=== PATIENT | female | born 1940 | race Caucasian/White ===

== ENCOUNTER → 2023-12-22 | Outpatient (REF) | payer MEDICARE, MEDICAID ==
[2023-12-22 11:12] LABS: BASO # 0.1 10^3/uL (0.0-0.2); BASO % 0.8 % (0.0-1.0); EOS # 0.2 10^3/uL (0.0-0.5); EOS % 2.3 % (0.0-3.0); HEMOGLOBIN 12.9 g/dl (12.0-15.5); LYMPH # 1.5 10^3/uL (1.5-5.0); LYMPH % 19.4 % (24.0-44.0); MEAN CORPUSCULAR HEMOGLOBIN 25.7 pg (27.0-33.0); MEAN CORPUSCULAR HGB CONC 30.7 g/dl (32.0-36.5); MEAN CORPUSCULAR VOLUME 83.8 fl (80.0-96.0); MONO # 0.7 10^3/uL (0.0-0.8); MONO % 8.8 % (2.0-8.0); NEUTROPHILS # 5.2 10^3/uL (1.5-8.5); NEUTROPHILS % 68.4 % (36.0-66.0); PLATELET COUNT, AUTOMATED 297 10^3/uL (150-450); RED BLOOD COUNT 5.01 10^6/uL (4.00-5.40); WHITE BLOOD COUNT 7.5 10^3/uL (4.0-10.0)
[2023-12-22 11:30] LABS: HEMOGLOBIN A1c 6.8 % (4.0-6.0)
[2023-12-22 11:38] LABS: ALBUMIN 3.4 G/DL (3.2-5.2); ALKALINE PHOSPHATASE 133 U/L (46-116); ALT/SGPT 25 U/L (7.0-40); AST/SGOT 20 U/L (<34); BILIRUBIN,TOTAL 0.7 MG/DL (0.3-1.2); BLOOD UREA NITROGEN 15 MG/DL (9-23); CALCIUM LEVEL 9.6 MG/DL (8.3-10.6); CARBON DIOXIDE LEVEL 28 MMOL/L (20-31); CHLORIDE LEVEL 102 MMOL/L (98-107); CHOLESTEROL LEVEL 124 MG/DL (<200); CREATININE FOR GFR 0.85 MG/DL (0.55-1.30); GLOMERULAR FILTRATION RATE > 60.0 (>32); GLUCOSE, FASTING 172 MG/DL (74-106); LDL CHOLESTEROL 60.4 MG/DL (<100); POTASSIUM SERUM 4.6 MMOL/L (3.5-5.1); SODIUM LEVEL 138 MMOL/L (136-145); TOTAL PROTEIN 6.5 G/DL (5.7-8.2); TRIGLYCERIDES LEVEL 118 MG/DL (<150)
[2023-12-22 11:39] LABS: THYROID STIMULATING HORMONE 3.464 uIU/ML (0.55-4.78); TOTAL 25(OH) VITAMIN D 50.5 NG/ML (20.0-100.0)
[2023-12-22 11:41] LABS: FREE T4 1.08 NG/DL (0.89-1.76)
== END ==
PROVIDERS: ATTEND Nurse Practitioner Family
DX: E11.69 Type 2 diabetes mellitus with other specified complication (principal); E66.9 Obesity, unspecified; I10 Essential (primary) hypertension; E55.9 Vitamin D deficiency, unspecified

== ENCOUNTER → 2024-04-08 | Outpatient (REF) | payer MEDICARE, MEDICAID ==
[2024-04-08 09:39] LABS: BASO # 0.1 10^3/uL (0.0-0.2); BASO % 0.5 % (0.0-1.0); EOS # 0.2 10^3/uL (0.0-0.5); EOS % 1.9 % (0.0-3.0); HEMATOCRIT 44.3 % (36.0-47.0); HEMOGLOBIN 14.5 g/dl (12.0-15.5); LYMPH # 2.5 10^3/uL (1.5-5.0); LYMPH % 24.5 % (24.0-44.0); MEAN CORPUSCULAR HEMOGLOBIN 27.7 pg (27.0-33.0); MEAN CORPUSCULAR HGB CONC 32.7 g/dl (32.0-36.5); MEAN CORPUSCULAR VOLUME 84.5 fl (80.0-96.0); MONO # 0.6 10^3/uL (0.0-0.8); MONO % 5.6 % (2.0-8.0); NEUTROPHILS # 6.8 10^3/uL (1.5-8.5); NEUTROPHILS % 67.2 % (36.0-66.0); PLATELET COUNT, AUTOMATED 209 10^3/uL (150-450); RED BLOOD COUNT 5.24 10^6/uL (4.00-5.40)
[2024-04-08 09:58] LABS: ALBUMIN 3.8 G/DL (3.2-5.2); BILIRUBIN,TOTAL 0.5 MG/DL (0.3-1.2); CALCIUM LEVEL 9.8 MG/DL (8.3-10.6); CHOLESTEROL RISK RATIO 6.08 (<5); CREATININE FOR GFR 1.09 MG/DL (0.55-1.30); HDL CHOLESTEROL 52.1 MG/DL (>40); LDL CHOLESTEROL 214.1 MG/DL (<100); NON-HDL-C 264.9 MG/DL; POTASSIUM SERUM 3.8 MMOL/L (3.5-5.1); TOTAL PROTEIN 7.4 G/DL (5.7-8.2)
[2024-04-08 09:59] LABS: THYROID STIMULATING HORMONE 1.316 uIU/ML (0.55-4.78); TOTAL 25(OH) VITAMIN D 35.5 NG/ML (20.0-100.0)
[2024-04-08 10:08] LABS: HEMOGLOBIN A1c 9.1 % (4.0-6.0)
[2024-04-08 10:56] LABS: FREE T4 1.34 NG/DL (0.89-1.76)
== END ==
PROVIDERS: ATTEND Nurse Practitioner Family
DX: E11.69 Type 2 diabetes mellitus with other specified complication (principal); E66.9 Obesity, unspecified; I10 Essential (primary) hypertension; E55.9 Vitamin D deficiency, unspecified

== ENCOUNTER 2024-07-11 07:32 | Emergency (ER) | payer MEDICARE, MEDICAID ==
[~2024-07-11] VITALS: Ht 162.6 cm; Wt 90.7 kg
[2024-07-11] MEDS: BOOSTRIX VACCINE (TETANUS/DIPHTH/ACEL. PERTUSSIS) 0.5ML SYR IM.IMMUN ONE (08:55)
[2024-07-11 09:37] VITALS: BP 140/64; TEMP 97.2; O2SAT 95
== END 2024-07-11 09:35 | disposition home or self-care (01) ==
LOC: M ED 07:32 → EDBD 07:32 → M ED 09:35
DX: S00.03XA Contusion of scalp, initial encounter (principal); S61.411A Laceration without foreign body of right hand, initial encounter; Y92.019 Unspecified place in single-family (private) house as the place of occurrence of the external cause; Y93.9 Activity, unspecified; Y99.9 Unspecified external cause status; W06.XXXA Fall from bed, initial encounter; I10 Essential (primary) hypertension; E78.5 Hyperlipidemia, unspecified; Z23 Encounter for immunization; Z88.8 Allergy status to other drugs, medicaments and biological substances

== ENCOUNTER → 2024-08-02 | Outpatient (REF) | payer MEDICARE, MEDICAID ==
[2024-08-02 18:07] LABS: APPEARANCE, URINE CLEAR (CLEAR); BACTERIA, URINE AUTO 1+ (NEGATIVE); BILIRUBIN, URINE AUTO NEGATIVE (NEGATIVE); BLOOD, URINE BLOOD NEGATIVE (NEGATIVE); COLOR, URINE YELLOW (YELLOW); GLUCOSE, URINE (UA) AUTO 3+ mg/dL (NEGATIVE); KETONE, URINE AUTO NEGATIVE (NEGATIVE); LEUKOCYTE ESTERASE, URINE AUTO NEGATIVE (NEGATIVE); NITRITE, URINE AUTO NEGATIVE (NEGATIVE); PROTEIN, URINE AUTO NEGATIVE (NEGATIVE); RBC, URINE AUTO 0 /HPF (0-3); SPECIFIC GRAVITY URINE AUTO 1.016 (1.002-1.035); SQUAMOUS EPITHELIAL CELL UR AU 0 /HPF (0-6); UROBILINOGEN, URINE AUTO 0.2 mg/dL (0.0-2.0); WBC, URINE AUTO 2 /HPF (0-3)
== END ==
PROVIDERS: ATTEND Nurse Practitioner Family
DX: R41.0 Disorientation, unspecified (principal)

== ENCOUNTER 2024-08-23 19:22 | Inpatient (IN) | payer MEDICARE, MEDICAID ==
[~2024-08-23] VITALS: Ht 162.6 cm; Wt 94.6 kg
[2024-08-23 20:14] VITALS: BP 149/66; TEMP 97.2; O2SAT 94
[2024-08-23] MEDS ORDERED: ISOVUE-370 76% 100ML VIAL As Ordered ONE (20:19)
[2024-08-23 20:33] LABS: BASO % 0.3 % (0.0-1.0); EOS # 0.2 10^3/uL (0.0-0.5); EOS % 1.9 % (0.0-3.0); HEMOGLOBIN 12.9 g/dl (12.0-15.5); LYMPH # 1.6 10^3/uL (1.5-5.0); MEAN CORPUSCULAR HEMOGLOBIN 27.9 pg (27.0-33.0); MEAN CORPUSCULAR HGB CONC 32.3 g/dl (32.0-36.5); MEAN CORPUSCULAR VOLUME 86.6 fl (80.0-96.0); MONO # 0.6 10^3/uL (0.0-0.8); MONO % 6.4 % (2.0-8.0); NEUTROPHILS # 6.4 10^3/uL (1.5-8.5); NEUTROPHILS % 72.9 % (36.0-66.0); PLATELET COUNT, AUTOMATED 203 10^3/uL (150-450); RED BLOOD COUNT 4.62 10^6/uL (4.00-5.40); WHITE BLOOD COUNT 8.8 10^3/uL (4.0-10.0)
[2024-08-23 20:54] LABS: CK-MB VALUE MASS < 1.0 NG/ML (<3.6)
[2024-08-23 20:57] LABS: BLOOD UREA NITROGEN 22 MG/DL (9-23); CARBON DIOXIDE LEVEL 29 MMOL/L (20-31); CHLORIDE LEVEL 106 MMOL/L (98-107); CPK CREATINE PHOSPHOKINASE 37 U/L (34-145); CREATININE FOR GFR 1.35 MG/DL (0.55-1.30); GLOMERULAR FILTRATION RATE 39.8 (>32); GLUCOSE, FASTING 139 MG/DL (74-106); POTASSIUM SERUM 4.1 MMOL/L (3.5-5.1); SODIUM LEVEL 145 MMOL/L (136-145)
[2024-08-23 21:14] LABS: INR 0.97; PARTIAL THROMBOPLASTIN TIME 30.4 SECONDS (24.8-34.2); PROTHROMBIN TIME 13.2 SECONDS (12.5-14.5)
[2024-08-23 21:53] LABS: CK-MB VALUE MASS < 1.0 NG/ML (<3.6)
[2024-08-23 21:54] LABS: CPK CREATINE PHOSPHOKINASE 40 U/L (34-145)
[2024-08-23] MEDS ORDERED: ONDA-282 PO (22:36)
[2024-08-23] MEDS: cefTRIAXone SOD 1 GM in DEXTROSE 5% (D5W) ADV/MINI-BAG 50 ML IV ONE (22:40)
[2024-08-23] MEDS: AZITHROMYCIN 250MG TABLET PO ONE (22:40)
[2024-08-23 23:58] LABS: MAGNESIUM LEVEL 2.2 MG/DL (1.8-2.4)
[2024-08-24] VITALS (7 sets, daily range): BP systolic 157–162; BP diastolic 72–79; TEMP 97.4–98; O2SAT 92–96
[2024-08-24 00:10] LABS: PROCALCITONIN 0.12 ng/ml
[2024-08-24] MEDS ORDERED: MOM 30ML SUSPENSION UDC PO PRN (00:30)
[2024-08-24] MEDS ORDERED: MAALOX 30 ML SUSP *UDC PO PRN (00:30)
[2024-08-24 01:19] LABS: ALBUMIN 3.4 G/DL (3.2-5.2); ALKALINE PHOSPHATASE 106 U/L (35-104); ALT/SGPT 20 U/L (7.0-40); AST/SGOT 12 U/L (<34); BILIRUBIN,DIRECT < 0.1 MG/DL (<0.4); BILIRUBIN,TOTAL 0.3 MG/DL (0.3-1.2); CHOLESTEROL LEVEL 185 MG/DL (<200); CHOLESTEROL RISK RATIO 3.73 (<5); HDL CHOLESTEROL 49.5 MG/DL (>40); LDL CHOLESTEROL 77.5 MG/DL (<100); NON-HDL-C 135.5 MG/DL; TOTAL PROTEIN 6.8 G/DL (5.7-8.2); TRIGLYCERIDES LEVEL 290 MG/DL (<150)
[2024-08-24 01:38] LABS: HEMOGLOBIN A1c 6.5 % (4.0-6.0)
[2024-08-24] MEDS ORDERED: JARD1TAB3 PO (01:46)
[2024-08-24] MEDS ORDERED: ACET-907 PO (01:46)
[2024-08-24] MEDS ORDERED: ARIP20TA51 PO (01:46)
[2024-08-24] MEDS ORDERED: PANT40TA29 PO (01:46)
[2024-08-24] MEDS ORDERED: GLIP5TAB20 PO (01:46)
[2024-08-24] MEDS ORDERED: FURO40TA2 PO (01:46)
[2024-08-24] MEDS ORDERED: VITA200012 PO (01:46)
[2024-08-24] MEDS ORDERED: ASPI-1 PO (01:46)
[2024-08-24] MEDS ORDERED: ZOLO100T PO (01:46)
[2024-08-24] MEDS ORDERED: LOSA50TA28 PO (01:46)
[2024-08-24] MEDS ORDERED: REPA140I2 SC (01:46)
[2024-08-24] MEDS ORDERED: AMLO2.5T3 PO (01:46)
[2024-08-24] MEDS ORDERED: HOME MED LIST COMPLETE! XX SCH (01:50)
[2024-08-24] MEDS: ACETAMINOPHEN 325 MG TAB PO PRN (04:22)
[2024-08-24] MEDS: ASPIRIN 81MG CHEW TABLET PO SCH (08:42)
[2024-08-24] MEDS: CETIRIZINE (ZyrTEC) 10 MG TAB PO SCH (08:42)
[2024-08-24] MEDS: HEPARIN SOD (PORCINE) 5000UNITS/ML 1ML VIAL/SYRINGE SQ SCH (08:42)
[2024-08-24] MEDS: CLOPIDOGREL 75 MG TAB PO SCH (08:42)
[2024-08-24] MEDS: AUGMENTIN 875 MG TAB PO SCH (08:42)
[2024-08-24] MEDS: DOCUSATE SODIUM 100MG CAPSULE PO SCH (08:42)
[2024-08-24] MEDS: FLUTICASONE PROP 0.05% NASAL SPRAY 16 GM (FLONASE) NARES SCH (08:43)
[2024-08-24 10:40] LABS: BASO % 0.3 % (0.0-1.0); EOS # 0.2 10^3/uL (0.0-0.5); EOS % 2.1 % (0.0-3.0); HEMATOCRIT 42.4 % (36.0-47.0); HEMOGLOBIN 13.6 g/dl (12.0-15.5); LYMPH # 1.5 10^3/uL (1.5-5.0); LYMPH % 19.5 % (24.0-44.0); MEAN CORPUSCULAR HEMOGLOBIN 28.3 pg (27.0-33.0); MEAN CORPUSCULAR HGB CONC 32.1 g/dl (32.0-36.5); MEAN CORPUSCULAR VOLUME 88.1 fl (80.0-96.0); MONO # 0.4 10^3/uL (0.0-0.8); MONO % 5.3 % (2.0-8.0); NEUTROPHILS # 5.4 10^3/uL (1.5-8.5); NEUTROPHILS % 72.7 % (36.0-66.0); PLATELET COUNT, AUTOMATED 167 10^3/uL (150-450); RED BLOOD COUNT 4.81 10^6/uL (4.00-5.40); WHITE BLOOD COUNT 7.5 10^3/uL (4.0-10.0)
[2024-08-24 11:07] LABS: CALCIUM LEVEL 8.5 MG/DL (8.3-10.6); CREATININE FOR GFR 1.06 MG/DL (0.55-1.30); GLOMERULAR FILTRATION RATE 52.6 (>32); POTASSIUM SERUM 3.6 MMOL/L (3.5-5.1)
[2024-08-24] MEDS ORDERED: **hydrALAZINE HCL** 25 MG TAB PO PRN (11:10)
[2024-08-24] MEDS: SERTRALINE 100 MG TAB PO SCH (11:48)
[2024-08-24] MEDS: PANTOPRAZOLE 40MG TAB (PROTONIX) PO SCH (11:48)
[2024-08-24] MEDS: ARIPiprazole 10 MG TAB PO SCH (20:23)
[2024-08-25] VITALS (24 sets, daily range): BP systolic 110–155; BP diastolic 56–70; TEMP 97.8–97.9; O2SAT 86–94
[2024-08-25 06:23] LABS: HEMATOCRIT 37.1 % (36.0-47.0); MEAN CORPUSCULAR HEMOGLOBIN 28.4 pg (27.0-33.0); MEAN CORPUSCULAR HGB CONC 32.3 g/dl (32.0-36.5); MEAN CORPUSCULAR VOLUME 87.7 fl (80.0-96.0); PLATELET COUNT, AUTOMATED 161 10^3/uL (150-450); RED BLOOD COUNT 4.23 10^6/uL (4.00-5.40)
[2024-08-25 07:25] LABS: BILIRUBIN,TOTAL 0.4 MG/DL (0.3-1.2); CALCIUM LEVEL 8.8 MG/DL (8.3-10.6); CREATININE FOR GFR 1.06 MG/DL (0.55-1.30); GLOMERULAR FILTRATION RATE 52.6 (>32); MAGNESIUM LEVEL 2.2 MG/DL (1.8-2.4); POTASSIUM SERUM 4.2 MMOL/L (3.5-5.1)
[2024-08-25] MEDS: ASPIRIN 81MG CHEW TABLET PO SCH (10:01)
[2024-08-25] MEDS ORDERED: GLUCOSE 4 GM CHEW PO PRN (17:55)
[2024-08-25] MEDS ORDERED: GLUCAGON INJ 1MG VIAL SC PRN (17:55)
[2024-08-25] MEDS ORDERED: DEXTROSE 50% 50ML SYRINGE IV PRN (17:55)
[2024-08-25] MEDS: INSULIN LISPRO (NovoLOG) PER UNIT SC SCH ×2 (18:22→21:00)
[2024-08-26] VITALS (7 sets, daily range): BP systolic 141–156; BP diastolic 66–76; TEMP 97.6–98.6; O2SAT 93–97
[2024-08-26 07:17] LABS: CALCIUM LEVEL 8.2 MG/DL (8.3-10.6); CREATININE FOR GFR 1.01 MG/DL (0.55-1.30); GLOMERULAR FILTRATION RATE 55.6 (>32); POTASSIUM SERUM 4.1 MMOL/L (3.5-5.1)
[2024-08-27 04:00] VITALS: BP 159/71; TEMP 97.9; O2SAT 97
[2024-08-27] MEDS: LOSARTAN 50MG TABLET PO SCH (09:06)
[2024-08-27 12:15] VITALS: BP 149/76; TEMP 97.1; O2SAT 96
[2024-08-27] MEDS: LACTOBACILLUS ACIDOPHILUS CAP (BACID) PO SCH (17:54)
[2024-08-27 21:16] VITALS: BP 153/79; TEMP 97.9; O2SAT 97
[2024-08-28 04:36] VITALS: BP 155/65; TEMP 97.5; O2SAT 98
[2024-08-28 05:47] LABS: BASO % 0.3 % (0.0-1.0); EOS # 0.3 10^3/uL (0.0-0.5); EOS % 4.5 % (0.0-3.0); HEMATOCRIT 35.1 % (36.0-47.0); HEMOGLOBIN 11.5 g/dl (12.0-15.5); LYMPH # 1.5 10^3/uL (1.5-5.0); LYMPH % 20.7 % (24.0-44.0); MEAN CORPUSCULAR HEMOGLOBIN 28.4 pg (27.0-33.0); MEAN CORPUSCULAR HGB CONC 32.8 g/dl (32.0-36.5); MEAN CORPUSCULAR VOLUME 86.7 fl (80.0-96.0); MONO # 0.4 10^3/uL (0.0-0.8); MONO % 5.3 % (2.0-8.0); NEUTROPHILS % 68.8 % (36.0-66.0); PLATELET COUNT, AUTOMATED 154 10^3/uL (150-450); RED BLOOD COUNT 4.05 10^6/uL (4.00-5.40); WHITE BLOOD COUNT 7.3 10^3/uL (4.0-10.0)
[2024-08-28 06:03] LABS: CALCIUM LEVEL 8.5 MG/DL (8.3-10.6); CREATININE FOR GFR 1.03 MG/DL (0.55-1.30); GLOMERULAR FILTRATION RATE 54.3 (>32)
[2024-08-28] MEDS: FUROSEMIDE 40 MG TAB PO SCH (09:05)
[2024-08-28 09:06] VITALS: BP 161/79
[2024-08-28] MEDS ORDERED: COLA100C5 PO (10:57)
[2024-08-28] MEDS ORDERED: RISATAB3 PO (10:57)
[2024-08-28] MEDS ORDERED: CLOP75TA2 PO (10:57)
[2024-08-28] MEDS ORDERED: CETI10TA PO (10:57)
[2024-08-28] MEDS ORDERED: AMLO1TAB24 PO (10:57)
[2024-08-28] MEDS ORDERED: AMOX875T2 PO (10:57)
[2024-08-28] MEDS ORDERED: ASPI81CH8 PO (10:57)
[2024-08-28 10:59] VITALS: BP 143/73
== END 2024-08-28 13:30 | DRG 65 ==
LOC: M ED 19:22 → UNDOADMOB 19:23 → M ED INP 19:23 → OBSVTOIN 23:34 → M ED INP 23:34 → M PCU 08-24 15:05 → M MSPAV 08-26 14:58
PROVIDERS: ADMIT Family Medicine; ATTEND Internal Medicine
PROC: B246ZZZ Ultrasonography of Right and Left Heart (ICD-10-PCS; principal; 2024-08-25)
DX: I63.531 Cerebral infarction due to unspecified occlusion or stenosis of right posterior cerebral artery (principal); I50.32 Chronic diastolic (congestive) heart failure; N17.9 Acute kidney failure, unspecified; I13.0 Hypertensive heart and chronic kidney disease with heart failure and stage 1 through stage 4 chronic kidney disease, or unspecified chronic kidney disease; E87.0 Hyperosmolality and hypernatremia; I25.10 Atherosclerotic heart disease of native coronary artery without angina pectoris; F25.9 Schizoaffective disorder, unspecified; E11.22 Type 2 diabetes mellitus with diabetic chronic kidney disease; N18.9 Chronic kidney disease, unspecified; M17.0 Bilateral primary osteoarthritis of knee; G47.33 Obstructive sleep apnea (adult) (pediatric); E66.9 Obesity, unspecified; I65.1 Occlusion and stenosis of basilar artery; I65.02 Occlusion and stenosis of left vertebral artery; J32.9 Chronic sinusitis, unspecified; R32 Unspecified urinary incontinence; Z66 Do not resuscitate; Z88.8 Allergy status to other drugs, medicaments and biological substances; M85.80 Other specified disorders of bone density and structure, unspecified site; Z79.82 Long term (current) use of aspirin; Z79.84 Long term (current) use of oral hypoglycemic drugs; Z79.899 Other long term (current) drug therapy; Z68.35 Body mass index [BMI] 35.0-35.9, adult

== ENCOUNTER → 2024-09-02 | Outpatient (REF) ==
[~2024-09-02] MED LIST: ACET-907 PO; AMLO1TAB24 PO; AMLO2.5T3 PO; AMOX875T2 PO; ARIP20TA51 PO; ASPI-1 PO; ASPI81CH8 PO; CETI10TA PO; CLOP75TA2 PO; COLA100C5 PO; FURO40TA2 PO; GLIP5TAB20 PO; JARD1TAB3 PO; LOSA50TA28 PO; ONDA-282 PO; PANT40TA29 PO; REPA140I2 SC; RISATAB3 PO; VITA200012 PO; ZOLO100T PO
[2024-09-02 09:16] LABS: HEMATOCRIT 38.7 % (36.0-47.0); HEMOGLOBIN 12.5 g/dl (12.0-15.5); MEAN CORPUSCULAR HGB CONC 32.3 g/dl (32.0-36.5); MEAN CORPUSCULAR VOLUME 86.8 fl (80.0-96.0); PLATELET COUNT, AUTOMATED 167 10^3/uL (150-450); RED BLOOD COUNT 4.46 10^6/uL (4.00-5.40); WHITE BLOOD COUNT 7.6 10^3/uL (4.0-10.0)
[2024-09-02 09:25] LABS: HEMOGLOBIN A1c 6.5 % (4.0-6.0)
[2024-09-02 09:28] LABS: CREATININE FOR GFR 1.08 MG/DL (0.55-1.30); GLOMERULAR FILTRATION RATE 51.5 (>32); POTASSIUM SERUM 3.9 MMOL/L (3.5-5.1)
== END ==
PROVIDERS: ATTEND Physician Assistant
DX: I50.9 Heart failure, unspecified (principal)

== ENCOUNTER → 2024-09-09 | Outpatient (REF) | payer MEDICARE, MEDICAID ==
[~2024-09-09] MED LIST changes: +GLIP-318 PO; -GLIP5TAB20 PO
[2024-09-09 09:01] LABS: HEMATOCRIT 36.9 % (36.0-47.0); HEMOGLOBIN 12.1 g/dl (12.0-15.5); MEAN CORPUSCULAR HEMOGLOBIN 28.7 pg (27.0-33.0); MEAN CORPUSCULAR HGB CONC 32.8 g/dl (32.0-36.5); MEAN CORPUSCULAR VOLUME 87.6 fl (80.0-96.0); PLATELET COUNT, AUTOMATED 172 10^3/uL (150-450); RED BLOOD COUNT 4.21 10^6/uL (4.00-5.40); WHITE BLOOD COUNT 8.9 10^3/uL (4.0-10.0)
[2024-09-09 09:27] LABS: CALCIUM LEVEL 8.9 MG/DL (8.3-10.6); CREATININE FOR GFR 1.1 MG/DL (0.55-1.30); GLOMERULAR FILTRATION RATE 50.4 (>32); POTASSIUM SERUM 3.8 MMOL/L (3.5-5.1)
== END ==
PROVIDERS: ATTEND Physician Assistant
DX: I50.9 Heart failure, unspecified (principal)

== ENCOUNTER → 2024-09-10 | Outpatient (REF) | PROVIDERS: ATTEND Physician Assistant | DX: E87.0 Hyperosmolality and hypernatremia (principal); Z53.8 Procedure and treatment not carried out for other reasons ==

== ENCOUNTER → 2024-09-11 | Outpatient (REF) ==
[2024-09-11 09:20] LABS: CALCIUM LEVEL 8.8 MG/DL (8.3-10.6); CREATININE FOR GFR 1.02 MG/DL (0.55-1.30); POTASSIUM SERUM 3.9 MMOL/L (3.5-5.1)
== END ==
PROVIDERS: ATTEND Physician Assistant
DX: E87.0 Hyperosmolality and hypernatremia (principal)

== ENCOUNTER → 2024-09-13 | Outpatient (REF) ==
[2024-09-13 07:53] LABS: CALCIUM LEVEL 8.7 MG/DL (8.3-10.6); GLOMERULAR FILTRATION RATE 56.2 (>32)
== END ==
PROVIDERS: ATTEND Physician Assistant
DX: E87.0 Hyperosmolality and hypernatremia (principal)

== ENCOUNTER → 2024-10-15 | Outpatient (REF) | payer MEDICARE, MEDICAID | PROVIDERS: ATTEND Physician Assistant | DX: R05.9 Cough, unspecified (principal) ==

== ENCOUNTER → 2024-10-15 | Outpatient (REF) | payer MEDICARE, MEDICAID | PROVIDERS: ATTEND Physician Assistant | DX: R05.9 Cough, unspecified (principal) ==

== ENCOUNTER → 2024-10-16 | Outpatient (REF) ==
[2024-10-16 08:38] LABS: HEMATOCRIT 38.9 % (36.0-47.0); HEMOGLOBIN 12.8 g/dl (12.0-15.5); MEAN CORPUSCULAR HEMOGLOBIN 28.6 pg (27.0-33.0); MEAN CORPUSCULAR HGB CONC 32.9 g/dl (32.0-36.5); PLATELET COUNT, AUTOMATED 163 10^3/uL (150-450); RED BLOOD COUNT 4.47 10^6/uL (4.00-5.40); WHITE BLOOD COUNT 8.6 10^3/uL (4.0-10.0)
[2024-10-16 09:05] LABS: CALCIUM LEVEL 8.9 MG/DL (8.3-10.6); CREATININE FOR GFR 1.04 MG/DL (0.55-1.30); POTASSIUM SERUM 3.9 MMOL/L (3.5-5.1)
== END ==
PROVIDERS: ATTEND Physician Assistant
DX: E11.9 Type 2 diabetes mellitus without complications (principal)

== ENCOUNTER → 2024-11-04 | Outpatient (REF) | payer MEDICARE, MEDICAID ==
[2024-11-04 18:14] LABS: C REACTIVE PROTEIN QUANTITATIV 1.68 MG/DL (<1.0)
[2024-11-04 18:16] LABS: ALBUMIN 3.6 G/DL (3.2-5.2); BILIRUBIN,TOTAL 0.3 MG/DL (0.3-1.2); CALCIUM LEVEL 9.1 MG/DL (8.3-10.6); CREATININE FOR GFR 1.12 MG/DL (0.55-1.30); GLOMERULAR FILTRATION RATE 48.5 (>32); POTASSIUM SERUM 4.4 MMOL/L (3.5-5.1); RHEUMATOID FACTOR QUANT 9.5 IU/ML (<14); TOTAL PROTEIN 6.8 G/DL (5.7-8.2)
[2024-11-04 18:17] LABS: URIC ACID 6.5 MG/DL (3.1-7.8)
== END ==
PROVIDERS: ATTEND Physician Assistant
DX: R22.30 Localized swelling, mass and lump, unspecified upper limb (principal); Z79.899 Other long term (current) drug therapy

== ENCOUNTER → 2024-11-13 | Outpatient (REF) | payer MEDICARE, MEDICAID ==
[2024-11-13 08:42] LABS: HEMATOCRIT 37.8 % (36.0-47.0); HEMOGLOBIN 12.3 g/dl (12.0-15.5); MEAN CORPUSCULAR HEMOGLOBIN 28.1 pg (27.0-33.0); MEAN CORPUSCULAR HGB CONC 32.5 g/dl (32.0-36.5); MEAN CORPUSCULAR VOLUME 86.3 fl (80.0-96.0); PLATELET COUNT, AUTOMATED 167 10^3/uL (150-450); RED BLOOD COUNT 4.38 10^6/uL (4.00-5.40); WHITE BLOOD COUNT 6.8 10^3/uL (4.0-10.0)
[2024-11-13 09:17] LABS: CREATININE FOR GFR 0.95 MG/DL (0.55-1.30); GLOMERULAR FILTRATION RATE 59.1 (>32); POTASSIUM SERUM 3.7 MMOL/L (3.5-5.1)
== END ==
PROVIDERS: ATTEND Internal Medicine
DX: E11.9 Type 2 diabetes mellitus without complications (principal)

== ENCOUNTER → 2025-01-07 | Outpatient (REF) | payer MEDICARE, MEDICAID ==
[2025-01-07 14:02] LABS: PLATELET COUNT, AUTOMATED 174 10^3/uL (150-450)
[2025-01-07 14:11] LABS: CALCIUM LEVEL 8.9 MG/DL (8.3-10.6); CARBON DIOXIDE LEVEL 27.0 MMOL/L (20-31); CHLORIDE LEVEL 106.0 MMOL/L (98-107); CREATININE FOR GFR 1.15 MG/DL (0.55-1.30); GLOMERULAR FILTRATION RATE 47.0 (>32); POTASSIUM SERUM 4.3 MMOL/L (3.5-5.1); SODIUM LEVEL 146.0 MMOL/L (136-145)
== END ==
PROVIDERS: ATTEND Physician Assistant
DX: N76.0 Acute vaginitis (principal)

== ENCOUNTER → 2025-01-17 | Outpatient (REF) | payer MEDICARE, MEDICAID | PROVIDERS: ATTEND Physician Assistant | DX: R41.0 Disorientation, unspecified (principal) ==

== ENCOUNTER 2025-01-27 12:40 | Inpatient (IN) | payer MEDICARE, MEDICAID ==
[~2025-01-27] VITALS: Ht 162.6 cm; Wt 94.8 kg
[2025-01-27 13:52] LABS: BASO # 0.0 10^3/uL (0.0-0.2); BASO % 0.1 % (0.0-1.0); EOS # 0.0 10^3/uL (0.0-0.5); EOS % 0.0 % (0.0-3.0); LYMPH # 1.0 10^3/uL (1.5-5.0); LYMPH % 7.3 % (24.0-44.0); MONO # 1.0 10^3/uL (0.0-0.8); MONO % 7.1 % (2.0-8.0); NEUTROPHILS # 12.0 10^3/uL (1.5-8.5); NEUTROPHILS % 84.9 % (36.0-66.0); PLATELET COUNT, AUTOMATED 151 10^3/uL (150-450)
[2025-01-27 14:28] LABS: ALT/SGPT 57.0 U/L (7.0-40); AST/SGOT 57.0 U/L (<34); CALCIUM LEVEL 9.5 MG/DL (8.3-10.6); CARBON DIOXIDE LEVEL 22.0 MMOL/L (20-31); CHLORIDE LEVEL 114.0 MMOL/L (98-107); CREATININE FOR GFR 2.59 MG/DL (0.55-1.30); GLOMERULAR FILTRATION RATE 17.7 (>32); POTASSIUM SERUM 3.7 MMOL/L (3.5-5.1); SODIUM LEVEL 152.0 MMOL/L (136-145)
[2025-01-27 14:30] LABS: THYROXINE (T4) 7.6 UG/DL (4.5-10.9)
[2025-01-27 15:28] LABS: KETONE, URINE AUTO RFX NEGATIVE (NEGATIVE); MUCUS, URINE RFX SMALL (NEGATIVE); NITRITE, URINE AUTO RFX NEGATIVE (NEGATIVE); RBC, URINE AUTO RFX 2 /HPF (0-3); SQUAM EPITHELIAL CELL UR AURFX 2 /HPF (0-6)
[2025-01-27 15:29] LABS: LEUKOCYTE ESTERASE UR AUTO RFX 3+ (NEGATIVE); WBC, URINE AUTO RFX TNTC /HPF (0-3)
[2025-01-27] MEDS ORDERED: ARIP1TAB6 PO (15:31)
[2025-01-27] MEDS ORDERED: AMLO1TAB24 PO (15:31)
[2025-01-27] MEDS ORDERED: ASPI81TA26 PO (15:31)
[2025-01-27] MEDS ORDERED: CLOP75TA99 PO (15:31)
[2025-01-27] MEDS ORDERED: FURO20TA2 PO (15:31)
[2025-01-27] MEDS ORDERED: HOME MED LIST COMPLETE! XX SCH (15:35)
[2025-01-27] MEDS: cefTRIAXone SOD 2 GM in DEXTROSE 5% (D5W) ADV/MINI-BAG 50 ML IV ONE (15:38)
[2025-01-27] MEDS: NS (Normal Saline) 0.9% 1,000 ML IV SCH (15:39)
[2025-01-27] MEDS ORDERED: ALBUTEROL SULFATE 2.5 MG/0.5 ML INH CONCENTRATE NEB SOLN NEB PRN (19:10)
[2025-01-27] MEDS: ACETAMINOPHEN *IV* 1,000 MG in IV 1 EA IV ONE (19:20)
[2025-01-27] MEDS: NS 0.45% 1,000 ML IV SCH (19:30)
[2025-01-27] MEDS: HEPARIN SOD 5000 UNITS/ML 1 ML VIAL/SYRINGE SQ SCH (20:03)
[2025-01-28] MEDS: MEROPENEM 1 GM in IV 1 EA IV SCH (06:01)
[2025-01-28 06:56] VITALS: BP 118/63; TEMP 98; O2SAT 94
[2025-01-28] MEDS ORDERED: GLUCOSE 4 GM CHEW PO PRN (07:50)
[2025-01-28] MEDS ORDERED: GLUCAGON INJ 1 MG VIAL SC PRN (07:50)
[2025-01-28] MEDS ORDERED: DEXTROSE 50% 50 ML SYRINGE IV PRN (07:50)
[2025-01-28 07:53] LABS: BASO # 0.0 10^3/uL (0.0-0.2); BASO % 0.2 % (0.0-1.0); EOS # 0.0 10^3/uL (0.0-0.5); EOS % 0.0 % (0.0-3.0); LYMPH # 0.8 10^3/uL (1.5-5.0); LYMPH % 5.0 % (24.0-44.0); MONO # 0.8 10^3/uL (0.0-0.8); MONO % 5.5 % (2.0-8.0); NEUTROPHILS # 13.2 10^3/uL (1.5-8.5); NEUTROPHILS % 88.4 % (36.0-66.0); PLATELET COUNT, AUTOMATED 142 10^3/uL (150-450)
[2025-01-28] MEDS: ASPIRIN 81 MG ENTERIC TABLET PO SCH (08:15)
[2025-01-28] MEDS: SERTRALINE 100 MG TAB PO SCH (08:15)
[2025-01-28] MEDS: PANTOPRAZOLE 40MG TAB PO SCH (08:15)
[2025-01-28] MEDS: CLOPIDOGREL 75 MG TAB PO SCH (08:15)
[2025-01-28] MEDS: INSULIN LISPRO (NovoLOG) PER UNIT SC SCH ×2 (08:16→19:17)
[2025-01-28 08:18] LABS: CALCIUM LEVEL 8.6 MG/DL (8.3-10.6); CARBON DIOXIDE LEVEL 22.0 MMOL/L (20-31); CHLORIDE LEVEL 119.0 MMOL/L (98-107); CREATININE FOR GFR 2.88 MG/DL (0.55-1.30); GLOMERULAR FILTRATION RATE 15.6 (>32); POTASSIUM SERUM 3.7 MMOL/L (3.5-5.1); SODIUM LEVEL 158.0 MMOL/L (136-145)
[2025-01-28] MEDS: amLODIPine 5 MG TAB PO SCH (08:23)
[2025-01-28] MEDS: D5W 1,000 ML IV SCH (09:45)
[2025-01-28 10:00] LABS: CALCIUM LEVEL 8.3 MG/DL (8.3-10.6); CARBON DIOXIDE LEVEL 21.0 MMOL/L (20-31); CHLORIDE LEVEL 120.0 MMOL/L (98-107); CREATININE FOR GFR 2.81 MG/DL (0.55-1.30); GLOMERULAR FILTRATION RATE 16.1 (>32); POTASSIUM SERUM 3.6 MMOL/L (3.5-5.1); SODIUM LEVEL 158.0 MMOL/L (136-145)
[2025-01-28 10:46] VITALS: BP 133/63; TEMP 96.8; O2SAT 92
[2025-01-28 12:36] LABS: CALCIUM LEVEL 8.4 MG/DL (8.3-10.6); CARBON DIOXIDE LEVEL 21.0 MMOL/L (20-31); CHLORIDE LEVEL 119.0 MMOL/L (98-107); CREATININE FOR GFR 2.84 MG/DL (0.55-1.30); GLOMERULAR FILTRATION RATE 15.9 (>32); POTASSIUM SERUM 3.5 MMOL/L (3.5-5.1); SODIUM LEVEL 156.0 MMOL/L (136-145)
[2025-01-28] MEDS: KCL 20MEQ IN D5W 1000ML 1,000 ML IV SCH (12:36)
[2025-01-28 13:07] VITALS: BP 121/59; TEMP 97; O2SAT 91
[2025-01-28] MEDS ORDERED: cefTRIAXone SOD 2 GM in DEXTROSE 5% (D5W) ADV/MINI-BAG 50 ML IV SCH (15:00)
[2025-01-28 15:05] VITALS: BP 124/59; TEMP 97.2; O2SAT 91
[2025-01-28 17:07] LABS: CALCIUM LEVEL 8.0 MG/DL (8.3-10.6); CARBON DIOXIDE LEVEL 20.0 MMOL/L (20-31); CHLORIDE LEVEL 118.0 MMOL/L (98-107); CREATININE FOR GFR 2.84 MG/DL (0.55-1.30); GLOMERULAR FILTRATION RATE 15.9 (>32); POTASSIUM SERUM 3.7 MMOL/L (3.5-5.1); SODIUM LEVEL 154.0 MMOL/L (136-145)
[2025-01-28] MEDS ORDERED: ALBUTEROL SULFATE 2.5 MG/0.5 ML INH CONCENTRATE NEB SOLN NEB PRN (18:00)
[2025-01-28 18:30] LABS: VENOUS BASE EXCESS -6.5 (-2.0-2.0); VENOUS HCO3 18.3 MMOL/L (23.0-27.0); VENOUS O2 SATURATION 96.3 % (60.0-80.0); VENOUS PARTIAL PRESSURE CO2 34.2 mmHg (38.0-50.0); VENOUS PARTIAL PRESSURE O2 85.7 mmHg (30.0-50.0); VENOUS PH 7.347 UNITS (7.330-7.430); VENOUS STANDARD HCO3 19.2 MMOL/L; VENOUS TOTAL CO2 19.4 MMOL/L (24.0-28.0)
[2025-01-28 18:57] LABS: CALCIUM LEVEL 8.2 MG/DL (8.3-10.6); CARBON DIOXIDE LEVEL 20.0 MMOL/L (20-31); CHLORIDE LEVEL 117.0 MMOL/L (98-107); CREATININE FOR GFR 2.78 MG/DL (0.55-1.30); GLOMERULAR FILTRATION RATE 16.3 (>32); POTASSIUM SERUM 3.8 MMOL/L (3.5-5.1); SODIUM LEVEL 153.0 MMOL/L (136-145)
[2025-01-28 19:01] LABS: CK-MB VALUE MASS 3.4 NG/ML (<3.6)
[2025-01-28 19:02] LABS: CPK CREATINE PHOSPHOKINASE 725.0 U/L (34-145); MB/CK RELATIVE INDEX 0.46 (< OR =4)
[2025-01-28 19:34] VITALS: BP 127/61; TEMP 98.8; O2SAT 94
[2025-01-28] MEDS ORDERED: INSULIN LISPRO (NovoLOG) PER UNIT SC SCH (21:00)
[2025-01-28 23:43] VITALS: BP 121/60; TEMP 97.9; O2SAT 94
[2025-01-29 01:48] LABS: CALCIUM LEVEL 7.9 MG/DL (8.3-10.6); CARBON DIOXIDE LEVEL 21.0 MMOL/L (20-31); CHLORIDE LEVEL 118.0 MMOL/L (98-107); CREATININE FOR GFR 2.89 MG/DL (0.55-1.30); GLOMERULAR FILTRATION RATE 15.6 (>32); POTASSIUM SERUM 3.8 MMOL/L (3.5-5.1); SODIUM LEVEL 153.0 MMOL/L (136-145)
[2025-01-29 03:51] VITALS: BP 126/59; TEMP 97.9; O2SAT 93
[2025-01-29 05:58] LABS: BASO # 0.0 10^3/uL (0.0-0.2); BASO % 0.2 % (0.0-1.0); EOS # 0.1 10^3/uL (0.0-0.5); EOS % 0.5 % (0.0-3.0); LYMPH # 0.9 10^3/uL (1.5-5.0); LYMPH % 7.2 % (24.0-44.0); MONO # 0.7 10^3/uL (0.0-0.8); MONO % 5.6 % (2.0-8.0); NEUTROPHILS # 10.7 10^3/uL (1.5-8.5); NEUTROPHILS % 85.5 % (36.0-66.0); PLATELET COUNT, AUTOMATED 146 10^3/uL (150-450)
[2025-01-29 06:23] LABS: CALCIUM LEVEL 7.9 MG/DL (8.3-10.6); CARBON DIOXIDE LEVEL 20.0 MMOL/L (20-31); CHLORIDE LEVEL 116.0 MMOL/L (98-107); CREATININE FOR GFR 2.84 MG/DL (0.55-1.30); GLOMERULAR FILTRATION RATE 15.9 (>32); POTASSIUM SERUM 3.9 MMOL/L (3.5-5.1); SODIUM LEVEL 151.0 MMOL/L (136-145)
[2025-01-29 07:15] VITALS: BP 134/63; TEMP 98.5; O2SAT 93
[2025-01-29 09:23] LABS: CALCIUM LEVEL 7.7 MG/DL (8.3-10.6); CARBON DIOXIDE LEVEL 20.0 MMOL/L (20-31); CHLORIDE LEVEL 118.0 MMOL/L (98-107); CREATININE FOR GFR 2.83 MG/DL (0.55-1.30); GLOMERULAR FILTRATION RATE 15.9 (>32); POTASSIUM SERUM 4.1 MMOL/L (3.5-5.1); SODIUM LEVEL 152.0 MMOL/L (136-145)
[2025-01-29 11:02] VITALS: BP 136/59; TEMP 97.1; O2SAT 95
[2025-01-29] MEDS: INSULIN LISPRO (NovoLOG) PER UNIT SC SCH ×2 (11:55→21:00)
[2025-01-29 13:39] LABS: CALCIUM LEVEL 7.8 MG/DL (8.3-10.6); CARBON DIOXIDE LEVEL 20.0 MMOL/L (20-31); CHLORIDE LEVEL 117.0 MMOL/L (98-107); CREATININE FOR GFR 2.75 MG/DL (0.55-1.30); GLOMERULAR FILTRATION RATE 16.5 (>32); POTASSIUM SERUM 4.2 MMOL/L (3.5-5.1); SODIUM LEVEL 151.0 MMOL/L (136-145)
[2025-01-29 15:28] LABS: ALT/SGPT 80.0 U/L (7.0-40); AST/SGOT 84.0 U/L (<34)
[2025-01-29 16:45] VITALS: BP 127/61; TEMP 96.8; O2SAT 92
[2025-01-29] MEDS ORDERED: PROHANCE 279.3MG/ML 5ML VIAL As Ordered ONE (19:42)
[2025-01-29] MEDS ORDERED: PROHANCE 279.3MG/ML 15ML VIAL As Ordered ONE (19:43)
[2025-01-29 20:13] LABS: CALCIUM LEVEL 7.8 MG/DL (8.3-10.6); CARBON DIOXIDE LEVEL 19.8 MMOL/L (20-31); CHLORIDE LEVEL 116.0 MMOL/L (98-107); CREATININE FOR GFR 2.69 MG/DL (0.55-1.30); GLOMERULAR FILTRATION RATE 16.9 (>32); POTASSIUM SERUM 4.3 MMOL/L (3.5-5.1); SODIUM LEVEL 149.0 MMOL/L (136-145)
[2025-01-29 21:24] LABS: CALCIUM LEVEL 7.8 MG/DL (8.3-10.6); CARBON DIOXIDE LEVEL 20.0 MMOL/L (20-31); CHLORIDE LEVEL 118.0 MMOL/L (98-107); CREATININE FOR GFR 2.73 MG/DL (0.55-1.30); GLOMERULAR FILTRATION RATE 16.7 (>32); POTASSIUM SERUM 4.3 MMOL/L (3.5-5.1); SODIUM LEVEL 150.0 MMOL/L (136-145)
[2025-01-30] VITALS (11 sets, daily range): BP systolic 118–144; BP diastolic 56–68; TEMP 95.5–98.5; O2SAT 88–98
[2025-01-30 01:18] LABS: CALCIUM LEVEL 7.6 MG/DL (8.3-10.6); CARBON DIOXIDE LEVEL 20.0 MMOL/L (20-31); CHLORIDE LEVEL 118.0 MMOL/L (98-107); CREATININE FOR GFR 2.74 MG/DL (0.55-1.30); GLOMERULAR FILTRATION RATE 16.6 (>32); POTASSIUM SERUM 4.7 MMOL/L (3.5-5.1); SODIUM LEVEL 150.0 MMOL/L (136-145)
[2025-01-30 04:58] LABS: BASO # 0.0 10^3/uL (0.0-0.2); BASO % 0.2 % (0.0-1.0); EOS # 0.3 10^3/uL (0.0-0.5); EOS % 2.4 % (0.0-3.0); LYMPH # 1.0 10^3/uL (1.5-5.0); LYMPH % 9.8 % (24.0-44.0); MONO # 0.5 10^3/uL (0.0-0.8); MONO % 4.5 % (2.0-8.0); NEUTROPHILS # 8.6 10^3/uL (1.5-8.5); NEUTROPHILS % 82.2 % (36.0-66.0); PLATELET COUNT, AUTOMATED 157 10^3/uL (150-450)
[2025-01-30 05:23] LABS: CALCIUM LEVEL 7.6 MG/DL (8.3-10.6); CARBON DIOXIDE LEVEL 19.0 MMOL/L (20-31); CHLORIDE LEVEL 116.0 MMOL/L (98-107); CPK CREATINE PHOSPHOKINASE 194.0 U/L (34-145); CREATININE FOR GFR 2.63 MG/DL (0.55-1.30); GLOMERULAR FILTRATION RATE 17.4 (>32); POTASSIUM SERUM 4.6 MMOL/L (3.5-5.1); SODIUM LEVEL 148.0 MMOL/L (136-145)
[2025-01-30 09:17] LABS: CHOLESTEROL LEVEL 161.0 MG/DL (<200); CHOLESTEROL RISK RATIO 18.29 (<5); LDL CHOLESTEROL 86.6 MG/DL (<100); NON-HDL-C 152.2 MG/DL; TRIGLYCERIDES LEVEL 328.0 MG/DL (<150)
[2025-01-30 09:35] LABS: ESTIMATED AVERAGE GLUCOSE 157.0 MG/DL (60-110)
[2025-01-30] MEDS: LanTUS (INSULIN GLARGINE INJ) 1 UNITS/0.01 ML SC SCH (09:44)
[2025-01-30 10:43] LABS: CALCIUM LEVEL 8.1 MG/DL (8.3-10.6); CARBON DIOXIDE LEVEL 20.0 MMOL/L (20-31); CHLORIDE LEVEL 115.0 MMOL/L (98-107); CREATININE FOR GFR 2.53 MG/DL (0.55-1.30); GLOMERULAR FILTRATION RATE 18.2 (>32); POTASSIUM SERUM 5.0 MMOL/L (3.5-5.1); SODIUM LEVEL 150.0 MMOL/L (136-145)
[2025-01-30 13:56] LABS: CALCIUM LEVEL 7.9 MG/DL (8.3-10.6); CARBON DIOXIDE LEVEL 19.0 MMOL/L (20-31); CHLORIDE LEVEL 114.0 MMOL/L (98-107); CREATININE FOR GFR 2.42 MG/DL (0.55-1.30); GLOMERULAR FILTRATION RATE 19.2 (>32); POTASSIUM SERUM 4.8 MMOL/L (3.5-5.1); SODIUM LEVEL 146.0 MMOL/L (136-145)
[2025-01-30] MEDS: ATORVASTATIN 20 MG TAB PO SCH (14:05)
[2025-01-30 18:13] LABS: CALCIUM LEVEL 7.8 MG/DL (8.3-10.6); CARBON DIOXIDE LEVEL 19.0 MMOL/L (20-31); CHLORIDE LEVEL 113.0 MMOL/L (98-107); CREATININE FOR GFR 2.27 MG/DL (0.55-1.30); GLOMERULAR FILTRATION RATE 20.8 (>32); POTASSIUM SERUM 4.9 MMOL/L (3.5-5.1); SODIUM LEVEL 144.0 MMOL/L (136-145)
[2025-01-30 21:16] LABS: CALCIUM LEVEL 7.7 MG/DL (8.3-10.6); CARBON DIOXIDE LEVEL 21.0 MMOL/L (20-31); CHLORIDE LEVEL 115.0 MMOL/L (98-107); CREATININE FOR GFR 2.22 MG/DL (0.55-1.30); GLOMERULAR FILTRATION RATE 21.3 (>32); POTASSIUM SERUM 4.7 MMOL/L (3.5-5.1); SODIUM LEVEL 147.0 MMOL/L (136-145)
[2025-01-31 04:04] VITALS: BP 125/58; TEMP 97.4; O2SAT 93
[2025-01-31 07:55] VITALS: BP 133/61; TEMP 97.4; O2SAT 92
[2025-01-31 08:50] LABS: BASO # 0.0 10^3/uL (0.0-0.2); BASO % 0.2 % (0.0-1.0); EOS # 0.3 10^3/uL (0.0-0.5); EOS % 3.4 % (0.0-3.0); LYMPH # 0.9 10^3/uL (1.5-5.0); LYMPH % 10.9 % (24.0-44.0); MONO # 0.4 10^3/uL (0.0-0.8); MONO % 5.0 % (2.0-8.0); NEUTROPHILS # 6.3 10^3/uL (1.5-8.5); NEUTROPHILS % 78.5 % (36.0-66.0); PLATELET COUNT, AUTOMATED 174 10^3/uL (150-450)
[2025-01-31 08:55] LABS: ALT/SGPT 86.0 U/L (7.0-40); AST/SGOT 56.0 U/L (<34); CALCIUM LEVEL 8.4 MG/DL (8.3-10.6); CARBON DIOXIDE LEVEL 21.0 MMOL/L (20-31); CHLORIDE LEVEL 116.0 MMOL/L (98-107); CREATININE FOR GFR 2.02 MG/DL (0.55-1.30); GLOMERULAR FILTRATION RATE 23.9 (>32); POTASSIUM SERUM 5.0 MMOL/L (3.5-5.1); SODIUM LEVEL 149.0 MMOL/L (136-145)
[2025-01-31] MEDS: D5W 1,000 ML IV SCH (09:32)
[2025-01-31 12:00] VITALS: BP 141/66; TEMP 97.6; O2SAT 98
[2025-01-31 15:13] LABS: CALCIUM LEVEL 8.7 MG/DL (8.3-10.6); CARBON DIOXIDE LEVEL 22.0 MMOL/L (20-31); CHLORIDE LEVEL 113.0 MMOL/L (98-107); CREATININE FOR GFR 1.92 MG/DL (0.55-1.30); GLOMERULAR FILTRATION RATE 25.4 (>32); POTASSIUM SERUM 4.9 MMOL/L (3.5-5.1); SODIUM LEVEL 147.0 MMOL/L (136-145)
[2025-01-31 15:57] VITALS: BP 140/64; TEMP 97.6; O2SAT 97
[2025-01-31 19:29] LABS: CALCIUM LEVEL 8.4 MG/DL (8.3-10.6); CARBON DIOXIDE LEVEL 22.0 MMOL/L (20-31); CHLORIDE LEVEL 112.0 MMOL/L (98-107); CREATININE FOR GFR 1.9 MG/DL (0.55-1.30); GLOMERULAR FILTRATION RATE 25.7 (>32); POTASSIUM SERUM 4.7 MMOL/L (3.5-5.1); SODIUM LEVEL 146.0 MMOL/L (136-145)
[2025-01-31 20:02] VITALS: BP 138/63; TEMP 97.1; O2SAT 94
[2025-01-31 23:25] VITALS: BP 142/67; TEMP 97; O2SAT 93
[2025-02-01 02:30] LABS: CALCIUM LEVEL 8.2 MG/DL (8.3-10.6); CARBON DIOXIDE LEVEL 21.0 MMOL/L (20-31); CHLORIDE LEVEL 110.0 MMOL/L (98-107); CREATININE FOR GFR 1.72 MG/DL (0.55-1.30); GLOMERULAR FILTRATION RATE 29.0 (>32); POTASSIUM SERUM 4.5 MMOL/L (3.5-5.1); SODIUM LEVEL 142.0 MMOL/L (136-145)
[2025-02-01 04:46] VITALS: BP 149/67; TEMP 97; O2SAT 94
[2025-02-01 05:51] LABS: BASO # 0.0 10^3/uL (0.0-0.2); BASO % 0.2 % (0.0-1.0); EOS # 0.3 10^3/uL (0.0-0.5); EOS % 3.5 % (0.0-3.0); LYMPH # 1.0 10^3/uL (1.5-5.0); LYMPH % 11.6 % (24.0-44.0); MONO # 0.4 10^3/uL (0.0-0.8); MONO % 4.6 % (2.0-8.0); NEUTROPHILS # 6.4 10^3/uL (1.5-8.5); NEUTROPHILS % 78.2 % (36.0-66.0); PLATELET COUNT, AUTOMATED 179 10^3/uL (150-450)
[2025-02-01 06:21] LABS: CALCIUM LEVEL 8.6 MG/DL (8.3-10.6); CARBON DIOXIDE LEVEL 23.0 MMOL/L (20-31); CHLORIDE LEVEL 107.0 MMOL/L (98-107); CREATININE FOR GFR 1.66 MG/DL (0.55-1.30); GLOMERULAR FILTRATION RATE 30.2 (>32); POTASSIUM SERUM 4.6 MMOL/L (3.5-5.1); SODIUM LEVEL 142.0 MMOL/L (136-145)
[2025-02-01 07:35] VITALS: BP 145/68; TEMP 97.2; O2SAT 94
[2025-02-01 14:20] VITALS: BP 148/69; TEMP 97.5; O2SAT 95
[2025-02-01 16:17] VITALS: BP 142/67; TEMP 97.8; O2SAT 95
[2025-02-01] MEDS: MOM 30 ML SUSPENSION UDC PO PRN (18:13)
[2025-02-01 20:35] VITALS: BP 135/64; TEMP 97.2; O2SAT 90
[2025-02-01] MEDS: SENNA 8.6 MG TAB PO SCH (20:42)
[2025-02-01] MEDS: DOCUSATE SODIUM 100 MG CAPSULE PO SCH (21:00)
[2025-02-02] VITALS (7 sets, daily range): BP systolic 126–146; BP diastolic 58–71; TEMP 97–98.6; O2SAT 18–96
[2025-02-02 05:59] LABS: BASO # 0.1 10^3/uL (0.0-0.2); BASO % 0.6 % (0.0-1.0); EOS # 0.2 10^3/uL (0.0-0.5); EOS % 2.4 % (0.0-3.0); LYMPH # 1.0 10^3/uL (1.5-5.0); LYMPH % 11.5 % (24.0-44.0); MONO # 0.4 10^3/uL (0.0-0.8); MONO % 4.8 % (2.0-8.0); NEUTROPHILS # 6.5 10^3/uL (1.5-8.5); NEUTROPHILS % 78.5 % (36.0-66.0); PLATELET COUNT, AUTOMATED 179 10^3/uL (150-450)
[2025-02-02 06:22] LABS: ALT/SGPT 49.0 U/L (7.0-40); AST/SGOT 22.0 U/L (<34); CALCIUM LEVEL 9.0 MG/DL (8.3-10.6); CARBON DIOXIDE LEVEL 22.0 MMOL/L (20-31); CHLORIDE LEVEL 108.0 MMOL/L (98-107); CREATININE FOR GFR 1.61 MG/DL (0.55-1.30); GLOMERULAR FILTRATION RATE 31.4 (>32); POTASSIUM SERUM 4.8 MMOL/L (3.5-5.1); SODIUM LEVEL 144.0 MMOL/L (136-145)
[2025-02-02] MEDS: MOM 30 ML SUSPENSION UDC PO SCH (21:44)
[2025-02-02] MEDS: BISACODYL 10 MG SUPP PR SCH (22:40)
[2025-02-03 04:07] VITALS: BP 150/67; TEMP 97; O2SAT 94
[2025-02-03 06:00] VITALS: O2SAT 95
[2025-02-03 06:10] LABS: BASO # 0.0 10^3/uL (0.0-0.2); BASO % 0.3 % (0.0-1.0); EOS # 0.2 10^3/uL (0.0-0.5); EOS % 2.1 % (0.0-3.0); LYMPH # 1.1 10^3/uL (1.5-5.0); LYMPH % 11.4 % (24.0-44.0); MONO # 0.5 10^3/uL (0.0-0.8); MONO % 4.7 % (2.0-8.0); NEUTROPHILS # 7.9 10^3/uL (1.5-8.5); NEUTROPHILS % 79.4 % (36.0-66.0); PLATELET COUNT, AUTOMATED 193 10^3/uL (150-450)
[2025-02-03 07:18] VITALS: BP 140/65; TEMP 97.1; O2SAT 93
[2025-02-03 08:03] LABS: ALT/SGPT 38.0 U/L (7.0-40); AST/SGOT 19.0 U/L (<34); CALCIUM LEVEL 9.0 MG/DL (8.3-10.6); CARBON DIOXIDE LEVEL 23.0 MMOL/L (20-31); CHLORIDE LEVEL 110.0 MMOL/L (98-107); CREATININE FOR GFR 1.56 MG/DL (0.55-1.30); GLOMERULAR FILTRATION RATE 32.6 (>32); POTASSIUM SERUM 4.5 MMOL/L (3.5-5.1); SODIUM LEVEL 145.0 MMOL/L (136-145)
[2025-02-03 17:07] VITALS: BP 142/64; TEMP 97.3; O2SAT 94
[2025-02-03] MEDS: LACTULOSE 20 GM/30 ML SYRUP UDC PO SCH (18:00)
[2025-02-03] MEDS: MEROPENEM 1 GM in IV 1 EA IV ONE (18:47)
[2025-02-03 19:25] VITALS: BP 138/67; TEMP 97.4; O2SAT 90
[2025-02-03] MEDS: DOCUSATE SODIUM 100 MG CAPSULE PO SCH (21:00)
[2025-02-04 03:05] VITALS: BP 138/60; TEMP 97.5; O2SAT 95
[2025-02-04 06:05] LABS: PLATELET COUNT, AUTOMATED 217 10^3/uL (150-450)
[2025-02-04 06:29] LABS: ALT/SGPT 31.0 U/L (7.0-40); AST/SGOT 18.0 U/L (<34); CALCIUM LEVEL 8.6 MG/DL (8.3-10.6); CARBON DIOXIDE LEVEL 24.0 MMOL/L (20-31); CHLORIDE LEVEL 107.0 MMOL/L (98-107); CREATININE FOR GFR 1.31 MG/DL (0.55-1.30); GLOMERULAR FILTRATION RATE 40.2 (>32); POTASSIUM SERUM 4.4 MMOL/L (3.5-5.1); SODIUM LEVEL 142.0 MMOL/L (136-145)
[2025-02-04 07:14] VITALS: BP 150/67; TEMP 98.5; O2SAT 95
[2025-02-04 08:45] VITALS: BP 148/70
[2025-02-04 15:25] VITALS: BP 117/56; TEMP 97.2; O2SAT 96
[2025-02-04] MEDS: ACETAMINOPHEN 325 MG TAB PO PRN (20:16)
[2025-02-04 20:19] VITALS: BP 112/51; TEMP 97.2; O2SAT 95
[2025-02-05 04:13] VITALS: BP 132/61; TEMP 97.2; O2SAT 92
[2025-02-05 05:56] LABS: PLATELET COUNT, AUTOMATED 129 10^3/uL (150-450)
[2025-02-05 06:33] LABS: ALT/SGPT 35.0 U/L (7.0-40); AST/SGOT 24.0 U/L (<34); CALCIUM LEVEL 9.0 MG/DL (8.3-10.6); CARBON DIOXIDE LEVEL 25.0 MMOL/L (20-31); CHLORIDE LEVEL 109.0 MMOL/L (98-107); CREATININE FOR GFR 1.32 MG/DL (0.55-1.30); GLOMERULAR FILTRATION RATE 39.8 (>32); POTASSIUM SERUM 4.1 MMOL/L (3.5-5.1); SODIUM LEVEL 146.0 MMOL/L (136-145)
[2025-02-05 07:59] VITALS: BP 138/60; TEMP 97; O2SAT 94
[2025-02-05] MEDS: D5W 1,000 ML IV SCH (11:33)
[2025-02-05 15:50] VITALS: BP 137/64; TEMP 97.3; O2SAT 96
[2025-02-05 19:01] VITALS: BP 138/96; TEMP 98.1; O2SAT 96
[2025-02-06 03:04] VITALS: BP 132/63; TEMP 97.8; O2SAT 99
[2025-02-06 07:49] LABS: BASO # 0.0 10^3/uL (0.0-0.2); BASO % 0.3 % (0.0-1.0); EOS # 0.2 10^3/uL (0.0-0.5); EOS % 2.1 % (0.0-3.0); LYMPH # 1.1 10^3/uL (1.5-5.0); LYMPH % 15.1 % (24.0-44.0); MONO # 0.4 10^3/uL (0.0-0.8); MONO % 5.8 % (2.0-8.0); NEUTROPHILS # 5.7 10^3/uL (1.5-8.5); NEUTROPHILS % 75.8 % (36.0-66.0); PLATELET COUNT, AUTOMATED 207 10^3/uL (150-450)
[2025-02-06 07:59] VITALS: BP 149/71; TEMP 97; O2SAT 98
[2025-02-06 08:04] LABS: ALT/SGPT 29.0 U/L (7.0-40); AST/SGOT 21.0 U/L (<34); CALCIUM LEVEL 8.7 MG/DL (8.3-10.6); CARBON DIOXIDE LEVEL 22.0 MMOL/L (20-31); CHLORIDE LEVEL 109.0 MMOL/L (98-107); CREATININE FOR GFR 1.16 MG/DL (0.55-1.30); GLOMERULAR FILTRATION RATE 46.5 (>32); POTASSIUM SERUM 4.2 MMOL/L (3.5-5.1); SODIUM LEVEL 144.0 MMOL/L (136-145)
[2025-02-06 09:42] VITALS: BP 149/71
[2025-02-06] MEDS ORDERED: MORPHINE 10 MG/0.5 ML ORAL CONCENTRATE SOLUTION U/D SL PRN (11:30)
[2025-02-06] MEDS ORDERED: HYOSCYAMINE SULFATE 0.125 MG SUBL TABLET SL PRN (11:30)
[2025-02-06] MEDS ORDERED: ATROPINE SULFATE 1% OPHTH SOLN 2 ML BTL SL PRN (11:30)
[2025-02-06] MEDS ORDERED: SALIVA SUBSTITUTE BTL MT PRN (11:30)
[2025-02-06] MEDS ORDERED: POLYVINYL ALCOHOL OPHTH SOLN 15ML (LIQUITEARS) OU PRN (11:30)
[2025-02-06] MEDS ORDERED: LORazepam 1 MG TAB PO PRN (11:30)
[2025-02-06] MEDS ORDERED: ONDANSETRON 4MG ORAL DISINTEGRATING TAB PO PRN (11:30)
[2025-02-06] MEDS ORDERED: ATIV1TAB7 PO (12:59)
[2025-02-06] MEDS ORDERED: MORP1SOL4 PO (12:59)
[2025-02-06] MEDS ORDERED: SENNA 8.6 MG TAB PO SCH (21:00)
[2025-02-06] MEDS ORDERED: MIRALAX *UNIT DOSE* 17 GM PACKET PO SCH (21:00)
== END 2025-02-06 13:30 | DRG 871 ==
LOC: M ED 12:40 → EEVIPCON 17:47 → M ED INP 17:47 → M MS5PR 01-28 06:40 → M PCU 01-28 10:36
PROVIDERS: ADMIT Internal Medicine Nephrology; ATTEND Internal Medicine
PROC: B246ZZZ Ultrasonography of Right and Left Heart (ICD-10-PCS; principal; 2025-01-31)
DX: A41.51 Sepsis due to Escherichia coli [E. coli] (principal); G93.41 Metabolic encephalopathy; J96.01 Acute respiratory failure with hypoxia; I63.531 Cerebral infarction due to unspecified occlusion or stenosis of right posterior cerebral artery; N39.0 Urinary tract infection, site not specified; I50.32 Chronic diastolic (congestive) heart failure; E87.0 Hyperosmolality and hypernatremia; N17.9 Acute kidney failure, unspecified; M62.82 Rhabdomyolysis; I13.0 Hypertensive heart and chronic kidney disease with heart failure and stage 1 through stage 4 chronic kidney disease, or unspecified chronic kidney disease; F25.9 Schizoaffective disorder, unspecified; F03.90 Unspecified dementia, unspecified severity, without behavioral disturbance, psychotic disturbance, mood disturbance, and anxiety; I65.02 Occlusion and stenosis of left vertebral artery; Z66 Do not resuscitate; I25.10 Atherosclerotic heart disease of native coronary artery without angina pectoris; R32 Unspecified urinary incontinence; E66.9 Obesity, unspecified; K21.9 Gastro-esophageal reflux disease without esophagitis; M19.90 Unspecified osteoarthritis, unspecified site; I65.1 Occlusion and stenosis of basilar artery; B96.20 Unspecified Escherichia coli [E. coli] as the cause of diseases classified elsewhere; D69.59 Other secondary thrombocytopenia; E87.6 Hypokalemia; D64.9 Anemia, unspecified; E11.22 Type 2 diabetes mellitus with diabetic chronic kidney disease; N18.9 Chronic kidney disease, unspecified; I67.1 Cerebral aneurysm, nonruptured; K59.00 Constipation, unspecified; K62.89 Other specified diseases of anus and rectum; R91.1 Solitary pulmonary nodule; R65.20 Severe sepsis without septic shock; R13.10 Dysphagia, unspecified; R54 Age-related physical debility; Z68.35 Body mass index [BMI] 35.0-35.9, adult; Z95.1 Presence of aortocoronary bypass graft; Z86.73 Personal history of transient ischemic attack (TIA), and cerebral infarction without residual deficits; Z79.82 Long term (current) use of aspirin; Z79.02 Long term (current) use of antithrombotics/antiplatelets; Z79.899 Other long term (current) drug therapy; Z88.8 Allergy status to other drugs, medicaments and biological substances

== ENCOUNTER → 2025-02-06 | Outpatient (REF) | payer MEDICARE, MEDICAID ==
[~2025-02-06] MED LIST changes: +ARIP1TAB6 PO; +ASPI81TA26 PO; +ATIV1TAB7 PO; +CLOP75TA99 PO; +FURO20TA2 PO; +MORP1SOL4 PO
== END ==
PROVIDERS: ATTEND Internal Medicine
DX: E11.9 Type 2 diabetes mellitus without complications (principal); Z53.8 Procedure and treatment not carried out for other reasons

== ENCOUNTER → 2025-06-03 | Outpatient (REF) | payer MEDICARE, MEDICAID ==
[2025-06-03 18:06] LABS: APPEARANCE, URINE HAZY (CLEAR); BACTERIA, URINE AUTO 3+ (NEGATIVE); BILIRUBIN, URINE AUTO NEGATIVE (NEGATIVE); BLOOD, URINE BLOOD NEGATIVE (NEGATIVE); CALCIUM OXALATE CRYSTALS SMALL; GLUCOSE, URINE (UA) AUTO 3+ mg/dL (NEGATIVE); KETONE, URINE AUTO NEGATIVE (NEGATIVE); LEUKOCYTE ESTERASE, URINE AUTO 2+ (NEGATIVE); MUCUS, URINE SMALL (NEGATIVE); NITRITE, URINE AUTO POSITIVE (NEGATIVE); PROTEIN, URINE AUTO NEGATIVE (NEGATIVE); RBC, URINE AUTO 3 /HPF (0-3); SPECIFIC GRAVITY URINE AUTO 1.014 (1.002-1.035); SQUAMOUS EPITHELIAL CELL UR AU 4 /HPF (0-6); UROBILINOGEN, URINE AUTO 0.2 mg/dL (0.0-2.0); WBC, URINE AUTO 81 /HPF (0-3); YEAST LIKE CELL URINE AUTO SMALL
== END ==
PROVIDERS: ATTEND Nurse Practitioner Family
DX: N39.0 Urinary tract infection, site not specified (principal)